=== PATIENT | female | born 2000 | race Caucasian/White ===

== ENCOUNTER 2022-11-10 07:38 | Emergency (ER) | payer BC ==
[~2022-11-10] VITALS: Ht 160 cm; Wt 63.5 kg
[2022-11-10 07:57] VITALS: BP_SYST 141
--- NOTE | 2022-11-10 08:14 | NUR ---
Placed in room 8 . 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 To gown for exam. Side rails up. Report given to Rosey LUCERO.
--- NOTE | 2022-11-10 08:14 | NUR ---
ER at bedside examining patient.
--- NOTE | 2022-11-10 08:15 | NUR ---
RECEIVED PT FROM KATARINA LUCERO. PT BIB FAMILY WITH C/O AB PAIN. PT IS AAOX4. VSS. NO S/S OF DISTRESS NOTED. SIDERAILS UP X2.
[2022-11-10 08:42] LABS: BASOPHILS # (AUTO) 0.1 K/uL (0.0-0.2); BASOPHILS % (AUTO) 0.8 % (0.0-2.0); EOSINOPHILS # (AUTO) 0.1 K/uL (0.0-0.4); EOSINOPHILS % (AUTO) 0.8 % (0.0-4.0); HEMATOCRIT 38.8 % (36-48); LYMPHOCYTES # (AUTO) 2.4 K/uL (1.0-5.5); LYMPHOCYTES % (AUTO) 25.7 % (20.5-51.5); MEAN CORPUSCULAR HEMOGLOBIN 28 pg (27-31); MEAN CORPUSCULAR HGB CONC 33 % (32-36); MEAN CORPUSCULAR VOLUME 85 fL (79.0-98.0); MONOCYTES # (AUTO) 0.3 K/uL (0.0-1.0); MONOCYTES % (AUTO) 3.5 % (1.7-9.3); NEUTROPHILS # (AUTO) 6.5 K/uL (1.8-7.7); NEUTROPHILS % (AUTO) 69.2 % (40.0-70.0); PLATELET COUNT (AUTO) 253 K/uL (130-430); RED BLOOD CELL COUNT(AUTO) 4.56 MIL/uL (4.2-6.2); RED CELL DISTRIBUTION WIDTH 12.4 % (9.0-15.0); WHITE BLOOD COUNT (AUTO) 9.4 K/uL (4.8-10.8)
[2022-11-10 08:51] LABS: ERYTHROCYTE SEDIMENTATION RATE 10 MM/HR (0-20)
[2022-11-10 08:53] LABS: CALCIUM 8.7 mg/dL (8.4-11.0); CREATININE 0.82 mg/dL (0.55-1.30)
[2022-11-10 09:07] LABS: ALBUMIN 3.9 g/dL (3.4-4.8); C-REACTIVE PROTEIN QUANT 0.6 mg/dL (0-0.5); TOTAL BILIRUBIN 0.3 mg/dL (0.0-1.0); URIC ACID 5.1 mg/dL (2.4-7.0)
--- NOTE | 2022-11-10 09:30 | NUR ---
LABS OBTAINED. CT SCAN COMPLETED.
[2022-11-10] MEDS ORDERED: IBUP-1969 PO (09:58)
[2022-11-10] MEDS ORDERED: TRAM50TA2 PO (09:58)
[2022-11-10] MEDS ORDERED: LIDO1ADH6 TP (10:03)
--- NOTE | 2022-11-10 10:10 | NUR ---
DR. LUKE AT BEDSIDE TO DISCUSS POC.
--- NOTE | 2022-11-10 10:39 | NUR ---
Patient given written and verbal discharge instructions and verbalizes understanding. ER MD discussed with patient the results and treatment provided. Patient in stable condition. ID arm band removed. Rx of IBUPROFEN given. Patient educated on pain management and to follow up with PMD. Pain Scale 0/10. Opportunity for questions provided and answered. Medication side effect fact sheet provided.
[2022-11-10 10:41] VITALS: BP_SYST 116
== END 2022-11-10 10:41 | disposition home or self-care (01) ==
LOC: SED 07:38
DX: G62.9 Polyneuropathy, unspecified (principal); M25.512 Pain in left shoulder; Z79.899 Other long term (current) drug therapy
CPT/HCPCS: 36415; 80053; 84550; 84703; 85025; 85651-TC; 86140; 99284